=== PATIENT | female | born 1990 | race African-American/Black ===

== ENCOUNTER 2018-12-22 11:40 | Inpatient (IN) | payer SELFPAY ==
[~2018-12-22] VITALS: Ht 167.6 cm; Wt 71.8 kg
[2018-12-22] MEDS ORDERED: IPRATROPIUM/ALBUTEROL 0.5-3(2.5)MG/3ML NEB HHN ONE ×2 (12:00→14:45)
[2018-12-22] MEDS ORDERED: PREDNISONE 20MG TABLET PO ONE (12:15)
[2018-12-22] MEDS ORDERED: SODIUM CHLORIDE 0.9% 1,000 ML IV ONE (14:07)
[2018-12-22] MEDS ORDERED: CEFTRIAXONE 1 G PREMIX 50 ML IV ONE (14:15)
[2018-12-22] MEDS ORDERED: AZITHROMYCIN 500 MG in DEXT 5% WATER 250 ML IV SCH ×2 (14:15→18:30)
[2018-12-22] MEDS ORDERED: MAGNESIUM 2 G PREMIX 50 ML IV ONE (14:15)
[2018-12-22] MEDS ORDERED: KETOROLAC 15MG/ML VIAL IV PRN (15:15)
[2018-12-22] MEDS ORDERED: LORAZEPAM 0.5MG TABLET PO PRN (15:15)
[2018-12-22] MEDS ORDERED: IPRATROPIUM/ALBUTEROL 0.5-3(2.5)MG/3ML NEB INH PRN (15:15)
[2018-12-22] MEDS ORDERED: DOCUSATE SODIUM 100MG CAPSULE PO PRN (15:15)
[2018-12-22] MEDS ORDERED: ONDANSETRON HCL 4MG/2ML INJ IV PRN (15:15)
[2018-12-22] MEDS ORDERED: MAGNESIUM/ALUMINUM HYDROXIDE/SIMETHICONE 30ML UDC PO PRN (15:15)
[2018-12-22] MEDS ORDERED: GUAIFENESIN 200MG/10ML SUGAR FREE UDC PO PRN (15:15)
[2018-12-22] MEDS ORDERED: ZOLPIDEM TARTRATE 5MG TABLET PO PRN (15:15)
[2018-12-22] MEDS ORDERED: ACETAMINOPHEN 325MG TABLET PO PRN (15:15)
[2018-12-22] MEDS ORDERED: CLONIDINE 0.1MG TABLET PO PRN (15:15)
[2018-12-22 16:08] LABS: HEMOGLOBIN. 12.6 g/dL (12.0-16.0); MEAN CORPUSCULAR HEMOGLOBIN 28.2 pg (28.0-32.0); MEAN CORPUSCULAR VOLUME 85.3 fL (81.0-99.0); MEAN PLATELET VOLUME 8.9 fl (7.4-10.4); PLATELET 198 x1000/uL (130-400); RED BLOOD CELL COUNT 4.45 mill/uL (4.2-5.4); RED CELL DISTRIBUTION WIDTH 14.7 % (11.6-14.6)
[2018-12-22 16:13] LABS: CHLORIDE 104 mEq/L (98-107)
[2018-12-22 16:22] LABS: PLATELET ESTIMATE NORMAL
[2018-12-22] MEDS: IPRATROPIUM/ALBUTEROL 0.5-3(2.5)MG/3ML NEB HHN SCH ×2 (17:00→21:21)
[2018-12-22 17:10] VITALS: BP 104/66
[2018-12-22 17:15] VITALS: BP 104/66
[2018-12-22] MEDS ORDERED: NITROGLYCERIN 0.4MG TABLET SL SL PRN (17:30)
[2018-12-22] MEDS: GUAIFENESIN/DM 600MG/30MG ER TAB 12HR PO SCH (18:17)
[2018-12-22] MEDS ORDERED: FLUT250D IH (18:50)
[2018-12-22] MEDS ORDERED: Albuterol INH (18:52)
[2018-12-22 20:00] VITALS: BP 106/53
[2018-12-22] MEDS ORDERED: POTASSIUM CHLORIDE 20MEQ/PACKET PO NR (20:30)
[2018-12-22] MEDS: FAMOTIDINE 20MG TABLET PO SCH (21:43)
[2018-12-22 23:19] LABS: *AMPHETAMINES SCREEN URINE NEGATIVE (NEGATIVE)
[2018-12-22 23:24] LABS: *BARBITURATES SCREEN URINE NEGATIVE (NEGATIVE); *BENZODIAZEPINES SCREEN URINE NEGATIVE (NEGATIVE); *COCAINE SCREEN URINE NEGATIVE (NEGATIVE); METHADONE URINE SCREEN NEGATIVE (NEGATIVE)
[2018-12-22 23:25] LABS: CANNABINOID URINE SCREEN NEGATIVE (NEGATIVE); OPIATES URINE SCREEN NEGATIVE (NEGATIVE); PHENCYCLIDINE URINE SCREEN NEGATIVE (NEGATIVE)
[2018-12-23] VITALS: BP 105/50
[2018-12-23] MEDS: IPRATROPIUM/ALBUTEROL 0.5-3(2.5)MG/3ML NEB HHN SCH ×6 (01:00→21:36)
[2018-12-23 04:00] VITALS: BP 99/41
[2018-12-23] MEDS: GUAIFENESIN/DM 600MG/30MG ER TAB 12HR PO SCH ×2 (06:52→18:16)
[2018-12-23] MEDS: FAMOTIDINE 20MG TABLET PO SCH ×2 (08:55→21:47)
[2018-12-23] MEDS ORDERED: CEFTRIAXONE 1 G PREMIX 50 ML IV SCH ×2 (17:00→18:00)
[2018-12-23] MEDS ORDERED: AZITHROMYCIN 500 MG in DEXT 5% WATER 250 ML IV SCH (17:00)
[2018-12-23 20:00] VITALS: BP 108/55
[2018-12-24] VITALS: BP 91/52
[2018-12-24] MEDS: IPRATROPIUM/ALBUTEROL 0.5-3(2.5)MG/3ML NEB HHN SCH ×4 (01:29→11:04)
[2018-12-24 04:00] VITALS: BP 106/43
[2018-12-24] MEDS: GUAIFENESIN/DM 600MG/30MG ER TAB 12HR PO SCH (06:31)
[2018-12-24 08:00] VITALS: BP 96/54
[2018-12-24] MEDS: FAMOTIDINE 20MG TABLET PO SCH (09:07)
[2018-12-24 11:41] VITALS: BP 113/64
== END 2018-12-24 12:30 | disposition home or self-care (01) | DRG 139 ==
LOC: ER 11:40 → 6WST 14:42 → EDBEDREQ 15:00 → ENRESERV 15:21
PROVIDERS: ADMIT Internal Medicine; ATTEND Internal Medicine
DX: J18.9 Pneumonia, unspecified organism (principal); J96.00 Acute respiratory failure, unspecified whether with hypoxia or hypercapnia; J45.901 Unspecified asthma with (acute) exacerbation; E87.6 Hypokalemia
CPT/HCPCS: 36415; 71045; 80305; 83036; 87804; 93005; 94640; 96365; 99285; C1893; J0456; J0696; J1885; J3475; J7030; J7050; J7060; J7512; J7620